=== PATIENT | male | born 1985 | race Two or more races ===

== ENCOUNTER 2023-06-13 06:35 | Emergency (ER) | payer MEDICAID ==
[~2023-06-13] VITALS: Ht 170.2 cm; Wt 77.9 kg
[2023-06-13 07:25] VITALS: BP 110/80; PULSE 67; RESP 16; TEMP 97.9; O2SAT 99
[2023-06-13] MEDS ORDERED: METH4PAK PO (07:43)
[2023-06-13] MEDS ORDERED: DIPH25TA54 PO (07:43)
[2023-06-13] MEDS ORDERED: DexAMETHasone SOD PHOS 10MG/1ML VIAL INJ IM ONE (07:45)
== END 2023-06-13 08:14 | disposition home or self-care (01) ==
LOC: ER 06:35
DX: L29.9 Pruritus, unspecified (principal); T50.995A Adverse effect of other drugs, medicaments and biological substances, initial encounter; Z79.899 Other long term (current) drug therapy; Y92.89 Other specified places as the place of occurrence of the external cause
CPT/HCPCS: 96372; 99283; J1100

== ENCOUNTER 2024-11-16 10:47 | Emergency (ER) | payer MEDICAID ==
[~2024-11-16] VITALS: Ht 167.6 cm; Wt 85.5 kg
[~2024-11-16 10:47] MED LIST: DIPH25TA54 PO; METH4PAK PO
[2024-11-16 11:42] VITALS: BP 126/84; PULSE 112; RESP 20; O2SAT 100
--- NOTE | 2024-11-16 11:57 | ED.PDOC ---
History of Present Illness HPI Comments A 39-YEAR-OLD MALE WITH NO PMHX PRESENTS WITH A CHIEF COMPLAINT FEVER, COUGH, CHILLS, SORE THROAT, AND NASAL CONGESTION. PATIENT REPORTS THAT HIM AND HIS DAUGHTERS ARE SICK AND GAVE IT TO ONE ANOTHER. PATIENT IS FEBRILE AT 100.5F ORALLY IN TRIAGE. PATIENT DENIES TAKING ANY MEDICATIONS AT HOME OTC. PATIENT DE NIES SHORTNESS OF BREATH, CHEST PAIN, ABDOMINAL PAIN, NAUSEA, VOMITING, HEADACHE, OR OTHER COMPLAINTS. NO OTHER SYMPTOMS OR MODIFYING FACTORS AT THIS TIME. PATIENT IS ALERT, ORIENTED X 4, AND HAS STEADY GAIT. Chief Complaint: Flu like Time Seen by MD: 11:39 Reviewed Notes: Medications, Allergies Information Source: Patient Mode of Arrival: Ambulatory Timing: Days Duration: Since onset Prehospital treatment: None Severity: Moderate Fever: Temperature max (100.5F), Oral Context: Recent: URI, Sore throat, Exposure to known disease Symptoms: Fever, Chills, Cough, Nasal symptoms, Sore throat Modifying Factors: Nothing Associated Signs and Symptoms: None Past Medical History PAST MEDICAL HISTORY: Denies Surgical History: Denies all surgeries Family History Family History: Reviewed,noncontributory to illness Social History Smoker: Non-Smoker Alcohol: Rarely Drugs: Denies Drug Use Lives In: Home Constitutional: Chills, Fever, See HPI EENTM: Nose Congestion, Throat Pain, Throat Swelling Respiratory: Cough Cardiovascular: No Symptoms Reported Gastrointestinal: No Symptoms Reported Genitourinary: No Symptoms Reported Neurological: No Symptoms Reported Musculoskeletal: No Symptoms Reported Integumentary: No Symptoms Reported Allergic/Immunocompromised: others Hematologic/Lymphatic: No Symptoms Reported Endocrine: No Symptoms Reported Psychiatric: No symptoms Reported All Other Systems: Reviewed and Negative Physical Exam General Appearance: No Apparent Distress, Normal HEENT: PERRL/EOMI, Pharyngeal Erythema (TONSILLAR SWELLING, NO EXUDATES. ), TMs Normal Neck: Full Range of Motion, Non-Tender, Normal, Normal Inspection Respiratory: Chest Non-Tender, Lungs Clear, No Accessory Muscle Use, No Respiratory Distress, Normal Breath Sounds Cardiovascular: No Edema, No JVD, No Murmur, No Gallop, Normal Peripheral Pulses, Regular Rate/Rhythm Breast Exam: Deferred Gastrointestinal: No Organomegaly, Non Tender, No Pulsatile Mass, Normal Bowel Sounds, Soft Genitalia: Deferred Pelvic: Deferred Rectal: Deferred Extremities: No calf tenderness, Normal capillary refill, Normal inspection, Normal range of motion, Non-tender, No pedal edema Musculoskeletal : Apperance: Normal Neurologic: Alert, radiologic tech II-XII nml as Tested, No Motor Deficits, Normal Affect, Normal Mood, No Sensory Deficits Cerebellar Function: Normal Reflexes: Normal Skin: Dry, Normal Color, Warm Peripheral Pulses: 2+ carotid (R), 2+ carotid (L) Lymphatic: No Adenopathy Was a procedure done? Was a procedure done?: No Fever Differential Dx Differential Diagnosis: Pneumonia, Pneumonitis, Pharyngitis, Other (TONSILLITIS ) X-Ray, Labs, Meds, VS Vital Signs Date Time Temp Pulse Resp B/P (MAP) Pulse Ox O2 Delivery O2 Flow Rate FiO2 11/16/24 12:16 100.5 11/16/24 11:42 112 20 100 Room Air 11/16/24 11:42 100.5 112 20 126/84 (98) 100 100.5 11/16/24 11:09 100.5 112 20 126/84 (98) 100 Current Medications Medications (Trade) Dose Ordered Sig/[place] Route Start Time Stop Time Status Last Admin Acetaminophen (Tylenol Tablet) 1,000 mg ONCE ONCE PO 11/16/24 11:45 11/16/24 11:46 DC 11/16/24 12:16 Ceftriaxone Sodium (Rocephin) 1,000 mg ONCE ONCE IM 11/16/24 11:45 11/16/24 11:46 DC 11/16/24 12:16 PATIENT: LUCINDA PRICE BACCT: [id number]: [id number] : 1985 LOC: ER ROOM / BED: / AGE / SEX: 39 / M ADM STATUS: REG ER SERVICE 1141 ORDERING PHYSICIAN: ADDY REYES PROCEDURE(s): CXR1 - CHEST XRAY 1 VIEW REASON: COUGH ORDER NUMBER(s): [id number], ACCESSION NUMBER(s): [id number] CHEST RADIOGRAPH Indication: COUGH Technique: Single frontal view of the chest was obtained Comparison: None FINDINGS: Lines and Tubes: None Lungs: No focal consolidation. Pleura: No effusion. No pneumothorax. Cardiomediastinal contours: Unremarkable Bones: No acute osseous abnormality. IMPRESSION: 1. No acute cardiopulmonary disease. ATED BY: SHILA CAMPBELL MD DICTATED DATE/TIME: 11/16/241215 SIGNED BY: SIHLA CAMPBELL MD SIGNED DATE/TIME: 11/16/241215 X-Ray, Labs, Meds, VS Comment EXTERNAL MEDICAL RECORDS REVIEWED: [NONE] INDEPENDENT HISTORIANS: [NONE] SOCIAL DETERMINANTS OF HEALTH: [NONE] LABS ORDERED: NONE REVIEWED AND INTERPRETED RESULTS: NONE IMAGING ORDERED: CHEST TREATMENTS ORDERED: ROCEPHIN 1GM IM AND TYLENOL 1GM PO PROCEDURES PERFORMED: NONE CRITICAL CARE TIME: NONE I HAVE DISCUSSED THE PATIENT WITH THE ATTENDING PHYSICIAN [PHYSICIAN'S NAME] AND HE AGREES WITH THE PATIENT'S PLAN OF CARE AND DISPOSITION. BASED ON HISTORY OF PRESENT ILLNESS, AND PHYSICAL EXAM, PATIENT WILL BE DISCHARGED HOME. DISCUSSED PLAN FOR DISCHARGE HOME WITH RX []. MEDICATION WARNINGS GIVEN. SHARED DECISION MAKING: DISCUSSED WITH PATIENT THAT THEIR WORKUP WAS NORMAL. PATIENT INSTRUCTED TO FOLLOW UP WITH PRIMARY CARE PROVIDER IN 1-2 DAYS FOR RE- EVALUATION OF SYMPTOMS. PATIENT VERBALIZES UNDERSTANDING TO RETURN TO ED FOR NEW OR WORSENING SYMPTOMS OR IF FOLLOW UP WITH PCP CANNOT BE OBTAINED. PATIENT FEELS COMFORTABLE GOING HOME AT THIS TIME. ALL QUESTIONS ADDRESSED AT TIME OF DISCHARGE. Images Reviewed?: Images reviewed and evaluated by me Time of 1ST Reevaluation: 12:30 Reevaluation 1ST: Improved Patient Education/Counseling: Diagnosis, Treatment, Need For Follow Up Family Education/Counseling: Diagnosis, Treatment, Need For Follow Up Medical Screening: No EMC Exist At This Time Departure 1 Departure Time of Disposition: 12:30 Impression: Primary Impression: Acute erythematous tonsillitis Disposition: 01 HOME / SELF CARE / HOMELESS Condition: Stable Additional Instructions: FOLLOW-UP WITH PCP IN 1 TO 2 DAYS. TAKE MEDICATIONS PRESCRIBED. RETURN TO ED FOR ANY NEW OR WORSENING SYMPTOMS. e-Prescriptions Ibuprofen (Ibuprofen) 800 Mg Tab 1 TAB PO QID, #24 TAB Prov: ADDY REYES 11/16/24 Azithromycin (Azithromycin) 500 Mg Tab 1 TAB PO DAILY, #5 TAB Prov: ADDY REYES 11/16/24 Discharged With: Self, Relative Critical Care Note Critical Care Time?: No Stability Stability form required: No Heart Score Heart Score: Heart Score Response (Comments) Value History N/A 0 EKG N/A 0 Age N/A 0 Risk Factors N/A 0 Troponin N/A 0 Total 0 I personally scribed for ADDY REYES ([email or web address]) on 11/16/24 at 11:57. Electronically submitted by Caio Smith ([email or web address]). I personally scribed for ADDY REYES ([email or web address]) on 11/16/24 at 12:25. El ectronically submitted by Caio Smith ([email or web address]). ADDY REYES Nov 16, 2024 11:57
[2024-11-16] MEDS: cefTRIAXone SOD 1,000 MG VL IM ONE (12:16)
[2024-11-16] MEDS: ACETAMINOPHEN 325 MG TAB PO ONE (12:16)
--- NOTE | 2024-11-16 12:18 | DVH ---
CHEST RADIOGRAPH Indication: COUGH Technique: Single frontal view of the chest was obtained Comparison: None FINDINGS: Lines and Tubes: None Lungs: No focal consolidation. Pleura: No effusion. No pneumothorax. Cardiomediastinal contours: Unremarkable Bones: No acute osseous abnormality. IMPRESSION: 1. No acute cardiopulmonary disease.
[2024-11-16] MEDS ORDERED: AZIT500T66 PO (12:27)
[2024-11-16] MEDS ORDERED: IBUP-1456 PO (12:27)
[2024-11-16 12:39] VITALS: TEMP 99.9
== END 2024-11-16 12:41 | disposition home or self-care (01) ==
LOC: ER 10:47
DX: J03.90 Acute tonsillitis, unspecified (principal); R50.9 Fever, unspecified
CPT/HCPCS: 71045; 96372; 99283; J0696